=== PATIENT | male | born 1970 | race Caucasian/White ===

== ENCOUNTER → 2016-09-11 | Outpatient (CLI) | payer OTHER | LOC: KOH-I 08:00 | DX: M79.661 Pain in right lower leg (principal) | CPT/HCPCS: 93971 ==

== ENCOUNTER → 2020-12-08 | Outpatient (CLI) | payer OTHER ==
[~2020-12-08] MED LIST: FLEXERIL 10 MG10 MG PO; MACROBID 100 M100 MG PO; NAPROSYN500 MG PO; PREDNISONE50 MG PO; ZOFRAN ODT 4 MG4 MG PO
== END ==
LOC: KOH-I 10:52
DX: U07.1 COVID-19 (principal); R91.8 Other nonspecific abnormal finding of lung field
CPT/HCPCS: 71046

== ENCOUNTER → 2021-02-12 | Outpatient (CLI) | payer OTHER | LOC: EMI 15:30 | DX: M25.551 Pain in right hip (principal) | CPT/HCPCS: 73721 ==

== ENCOUNTER → 2021-06-27 | Outpatient (CLI) | payer OTHER | LOC: KOH-I 13:55 | DX: W19.XXXA Unspecified fall, initial encounter (principal); M47.816 Spondylosis without myelopathy or radiculopathy, lumbar region | CPT/HCPCS: 72100 ==

== ENCOUNTER → 2021-07-03 | Outpatient (CLI) | payer OTHER | LOC: KOH-I 14:12 | DX: R22.1 Localized swelling, mass and lump, neck (principal); E04.1 Nontoxic single thyroid nodule; W19.XXXA Unspecified fall, initial encounter | CPT/HCPCS: 76536 ==

== ENCOUNTER 2021-10-06 13:40 | Emergency (ER) | payer OTHER ==
[2021-10-06] MEDS ORDERED: ENDOCET 5-3251 EACH PO ×5 (16:58→18:39)
== END 2021-10-06 17:40 | disposition home or self-care (01) ==
LOC: ER1 13:40
DX: S22.081A Stable burst fracture of T11-T12 vertebra, initial encounter for closed fracture (principal); V49.40XA Driver injured in collision with unspecified motor vehicles in traffic accident, initial encounter; Y92.410 Unspecified street and highway as the place of occurrence of the external cause
CPT/HCPCS: 71045; 72125; 72128; 72131; 73090; 73110; 73130; 73552; 93005; 96374; 96375; 99284; J1170; J2405

== ENCOUNTER → 2021-11-15 | Outpatient (CLI) | payer OTHER ==
[~2021-11-15] MED LIST changes: +ENDOCET 5-3251 EACH PO
== END ==
LOC: CT 10:30
DX: R10.13 Epigastric pain (principal); I72.3 Aneurysm of iliac artery; N32.89 Other specified disorders of bladder
CPT/HCPCS: Q9967